=== PATIENT | male | born 1970 | race Caucasian/White ===

== ENCOUNTER 2022-06-12 06:30 | Inpatient (IN) | payer MEDICARE, OTHER ==
[~2022-06-12] VITALS: Ht 190.5 cm; Wt 81.0 kg
[~2022-06-12 06:30] MED LIST: BACTRIM DS 8001 TAB PO; CELEXA10 MG PO; DOXYCYCLINE 10100 MG PO; FARXIGA5 PO; KLONOPIN 0.5MG0.5 MG PO; KOMBIGLYZE XR 11 TER PO; NORCO 325 MG-51 TAB PO; ONGLYZA2.5 MG PO; RISPERDAL 0.20.25 MG PO; SEPTRA DS 8001 TAB PO
[2022-06-12 07:14] LABS: BASO % 0.5 % (0.0-2.0); EOS # 0.1 K/mm3 (0.0-0.7); EOS % 0.8 % (0.0-4.0); GRAN # 3.8 K/mm3 (1.4-6.5); GRAN % 62.7 % (42.2-75.2); HEMATOCRIT 48.1 % (42.0-52.0); HEMOGLOBIN 16.4 g/dl (13.5-18.0); LYMPH # 1.8 K/mm3 (1.2-3.4); LYMPH % 30.3 % (20.0-51.0); MEAN CELL VOLUME 85 fl (80.0-100.0); MEAN CORPUSCULAR HEMOGLOBIN 29 pg (27-31); MEAN CORPUSCULAR HGB CONC 34 g/dl (33.0-37.0); MEAN PLATELET VOLUME 9.2 fl (7.4-10.4); MONO # 0.3 K/mm3 (0.1-0.6); MONO % 5.5 % (1.7-9.3); PLATELET COUNT 268 K/mm3 (130-400); RED BLOOD COUNT 5.69 M/mm3 (4.20-5.60); REDCELL DISTRIBUTION WIDTH-CV 12.8 % (11.5-14.5)
[2022-06-12 07:21] LABS: PROTHROMBIN TIME 11.5 SECONDS (9.7-12.8)
[2022-06-12 07:27] LABS: ALBUMIN 2.2 gm/dL (3.5-5.0); BILIRUBIN,TOTAL 0.3 mg/dL (0.2-1.2); C-REACTIVE PROTEIN 0.74 mg/dL (0.00-0.50); CALCIUM 9.3 mg/dL (8.4-10.2); CREATININE, serum 1.44 mg/dL (0.72-1.25); POTASSIUM 4.9 mmol/L (3.5-4.5); TOTAL PROTEIN 6.8 gm/dL (6.2-8.1)
[2022-06-12 09:24] VITALS: BP 163/84; PULSE 96; TEMP 98
[2022-06-12 12:12] VITALS: BP 152/78; PULSE 92; TEMP 97.8
[2022-06-12 15:35] VITALS: BP 171/83; PULSE 84; TEMP 98.4
[2022-06-12 19:35] VITALS: BP 157/93; PULSE 108; TEMP 98.6
--- NOTE | 2022-06-12 21:17 | NUR ---
ALERT AND OX4. DENIES SOA, CHEST PAIN OR DIZZY. LEFT SIDE WEAK IN LEG OTHERWISE NEURO INTACT. CT H/N ORDERED PT THERE NOW. IV FLUIDS AND PM MEDS. POC DISCUSSED. USING URINAL. CALL LIGHT WI REACH.
[2022-06-12 23:17] VITALS: BP 142/85; PULSE 98; TEMP 98.3
[2022-06-13 02:06] LABS: MUCOUS Present (NOT PRESENT); PH 5 (5-8); SQUAMOUS EPITHELIAL 0-2 /hpf (0-10); URINE APPEARANCE Clear (CLEAR/HAZY); URINE BACTERIA Rare /hpf (NONE SEEN); URINE BLOOD 1+ (NEGATIVE); URINE COLOR Yellow (YELLOW); URINE GLUCOSE 2+ (NEGATIVE); URINE KETONE Negative (NEGATIVE); URINE NITRATE Negative (NEGATIVE); URINE PROTEIN(semi-quant) 2+ (NEGATIVE); URINE UROBILINOGEN Negative (NEGATIVE); URINE WBC 0-2 /hpf (0-2)
[2022-06-13 03:08] LABS: COLLECTION METHOD CLEAN CATCH
[2022-06-13 04:25] VITALS: BP 172/95; PULSE 88; TEMP 97.6
--- NOTE | 2022-06-13 04:36 | NUR ---
RESTED THROUGH THE NIGHT WITHOUT INCIDENT. NEEDS ARE MET. CALL LIGHT WI REACH.
[2022-06-13 07:03] VITALS: BP 127/71; PULSE 81; TEMP 99
[2022-06-13 07:23] LABS: BASO % 0.5 % (0.0-2.0); EOS # 0.1 K/mm3 (0.0-0.7); EOS % 1.2 % (0.0-4.0); GRAN # 3.3 K/mm3 (1.4-6.5); GRAN % 57.5 % (42.2-75.2); HEMATOCRIT 47.1 % (42.0-52.0); HEMOGLOBIN 15.9 g/dl (13.5-18.0); MEAN CELL VOLUME 85 fl (80.0-100.0); MEAN CORPUSCULAR HEMOGLOBIN 29 pg (27-31); MEAN CORPUSCULAR HGB CONC 34 g/dl (33.0-37.0); MEAN PLATELET VOLUME 9.8 fl (7.4-10.4); MONO # 0.3 K/mm3 (0.1-0.6); MONO % 5.6 % (1.7-9.3); PLATELET COUNT 274 K/mm3 (130-400); RED BLOOD COUNT 5.52 M/mm3 (4.20-5.60); REDCELL DISTRIBUTION WIDTH-CV 12.8 % (11.5-14.5)
[2022-06-13 07:32] LABS: CALCIUM 8.6 mg/dL (8.4-10.2); CHOLESTEROL RISK RATIO 8.5; CREATININE, serum 1.21 mg/dL (0.72-1.25); POTASSIUM 4.7 mmol/L (3.5-4.5)
[2022-06-13 07:55] LABS: TSH w REFLEX 2.102 uIU/mL (0.350-4.940)
[2022-06-13 08:00] VITALS: BP 127/71; PULSE 81
--- NOTE | 2022-06-13 10:19 | NUR ---
Initial visit; Patient thanked Waste Water Operator for looking in on him. Patient was receptive to Waste Water Operator offering God's blessings and for wishing him well.
[2022-06-13 12:00] VITALS: BP 151/91; PULSE 90; TEMP 98.4
--- NOTE | 2022-06-13 14:27 | NUR ---
leadite worker met with patient to complete intake and discuss discharge plan. Patient reports that he lives at home with his mother Nikki ([phone]), his brother and his dog. Patient states that he is independent with his ADL's and does not utilize any DME at home to assist with ambulation. Patient has been using a FWW during this stay and states that he has access to a walker at home. Patient does not utilize any home oxygen. Patient states that he used to see but hasn't seen him "in a few years". He gets his medications from [facility]. Patient does not have a DPOA-HC established but states he has a 25 yr old daughter that he doesn't have contact with her. He would like a form to appoint his mother as his agent. SW spoke with the patient about IPR. Patient verbalizes that he would like to go home. I feels as if he can do the same exercises at home that were doing here and doesn't feel like he needs it. IPR referral made to IPR director. PROMISE spoke with physician who states that his MRI was positive for a stroke and will talk with the patient about therapy. Discharge plan: Patient's wants to go home; IPR referral pending
--- NOTE | 2022-06-13 15:30 | NUR ---
PROMISE and ADA Trimble met with patient to explain the MRI findings. ADA educated the patient on his A1C levels, the need to monitor the patient post acute stroke and that we are waiting for neuro to consult with him. ADA attempts muliple efforts to educate the patient on his condition and is repeatedly interrupted by the patient. The patient expresses a strong desire to return home assuming the potential risks and possible that can occur. Patients nurse notified.
--- NOTE | 2022-06-13 15:57 | NUR ---
PATIENT INFORMED ADA CHNICHILLA THAT HE WANTS TO LEAVE AMA. THE PA INFORMED HIM OF ALL CONSEQUENCES OF LEAVING AMA, WELL THE PROS OF STAYING. I ALSO WENT OVER THE CONSEQUENCES OF SIGNING OUT AMA, INCLUDING BUT NOT LIMITED TO ANOTHER STROKE AND/OR . PATIENT STILL WANTED TO SIGN OUT AMA. HE IS COMPLETLEY ALERT AND ORIENTED, AND ABLE TO MAKE HIS OWN DECISIONS. PAPER SIGNED AND IN THE CHART. IV REMOVED, TELE MONITOR TAKEN OFF. CHARGE NURSE AND PUBLICATION MANAGER AWARE.
== END 2022-06-13 15:30 | disposition left against medical advice (07) | DRG 65 ==
LOC: COL.ER 06:30 → MEDICAL 08:23
PROVIDERS: Family Medicine; ADMIT Student in an Organized Health Care Education/Training Program
PROC: 4A03X5D Measurement of Arterial Flow, Intracranial, External Approach (ICD-10-PCS; principal; 2022-06-13)
DX: I63.9 Cerebral infarction, unspecified (principal); N17.9 Acute kidney failure, unspecified; I69.354 Hemiplegia and hemiparesis following cerebral infarction affecting left non-dominant side; Z53.29 Procedure and treatment not carried out because of patient's decision for other reasons; E11.9 Type 2 diabetes mellitus without complications; E87.5 Hyperkalemia; I10 Essential (primary) hypertension; J32.2 Chronic ethmoidal sinusitis; J32.1 Chronic frontal sinusitis; F41.9 Anxiety disorder, unspecified; R29.700 NIHSS score 0; F31.9 Bipolar disorder, unspecified; J32.0 Chronic maxillary sinusitis; J32.3 Chronic sphenoidal sinusitis; H54.62 Unqualified visual loss, left eye, normal vision right eye; F17.210 Nicotine dependence, cigarettes, uncomplicated; Z90.49 Acquired absence of other specified parts of digestive tract; Z89.422 Acquired absence of other left toe(s)
CPT/HCPCS: G0378; J1650; J1815; J7030; Q9967

== ENCOUNTER 2024-03-18 17:37 | Inpatient (IN) | payer MEDICARE ==
[~2024-03-18] VITALS: Ht 190.5 cm; Wt 74.4 kg
[~2024-03-18 17:37] MED LIST changes: +CORDARONE200 MG/TAB PO; +COUMADIN4 MG PO; +TURMERIC500 MG PO
[2024-03-18 18:42] LABS: BASO % 0.4 % (0.0-2.0); EOS # 0.2 K/mm3 (0.0-0.7); EOS % 1.9 % (0.0-4.0); GRAN # 7.6 K/mm3 (1.4-6.5); GRAN % 78.7 % (42.2-75.2); LYMPH # 1.2 K/mm3 (1.2-3.4); LYMPH % 12.6 % (20.0-51.0); MEAN CELL VOLUME 88 fl (80.0-100.0); MEAN CORPUSCULAR HGB CONC 33 g/dl (33.0-37.0); MEAN PLATELET VOLUME 9.8 fl (7.4-10.4); MONO # 0.6 K/mm3 (0.1-0.6); MONO % 6.1 % (1.7-9.3); PLATELET COUNT 282 K/mm3 (130-400); RED BLOOD COUNT 2.31 M/mm3 (4.20-5.60); REDCELL DISTRIBUTION WIDTH-CV 15.5 % (11.5-14.5)
[2024-03-18] MEDS ORDERED: NS 500 ML IV ONE (18:45)
[2024-03-18 18:46] LABS: HEMATOCRIT 20.3 % (42.0-52.0); HEMOGLOBIN 6.6 g/dl (13.5-18.0); MEAN CORPUSCULAR HEMOGLOBIN 29 pg (27-31)
[2024-03-18 18:48] LABS: ACETONE,SERUM NEGATIVE; ERYTHROCYTE SEDIMENTATION RATE 36 mm/hr (0-30)
[2024-03-18 19:03] LABS: ALANINE AMINOTRANSFERASE 21 U/L (0-55); ALKALINE PHOSPHATASE 96 U/L (40-150); ANION GAP 15 mmol/L (7-16); AST,SGOT 26 U/L (5-34); BILIRUBIN,TOTAL 0.3 mg/dL (0.2-1.2); BLOOD UREA NITROGEN 54 mg/dL (8-26); C-REACTIVE PROTEIN 18.59 mg/dL (0.00-0.50); CALCIUM 8.3 mg/dL (8.4-10.2); CHLORIDE 95 mEq/L (98-107); CREATININE, serum 3.09 mg/dL (0.72-1.25); GLUCOSE 215 mg/dL (70-99); POTASSIUM 3.5 mEq/L (3.5-4.5); SODIUM 136 mEq/L (136-145); TOTAL PROTEIN 6.9 g/dl (6.2-8.1)
[2024-03-18] MEDS ORDERED: COUMADIN 3MG3 MG/TAB PO (20:28)
[2024-03-18] MEDS ORDERED: LASIX 80MG TABL80 MG PO (20:29)
[2024-03-18] MEDS ORDERED: CORDARONE200 MG/TAB PO (20:29)
[2024-03-18] MEDS ORDERED: LASIX 40MG TABL40 MG PO (20:30)
[2024-03-18] MEDS ORDERED: FERROUSAL325 MG PO (20:30)
[2024-03-18] MEDS ORDERED: Insulin Lispro (HumaLOG) SQ SCH (21:00)
[2024-03-18] MEDS ORDERED: Acetaminophen 325 MG TAB PO PRN (21:00)
[2024-03-18] MEDS ORDERED: Dextrose (Glucose) 15 GM (4 x 3.75 GM) Chewable TABLET PACK PO PRN (21:15)
[2024-03-18] MEDS ORDERED: Dextrose 50% Water 25 GM/50 ML SYRINGE IV PRN (21:15)
[2024-03-18] MEDS ORDERED: Glucagon 1 MG VIAL IM PRN (21:15)
[2024-03-18 21:17] LABS: INR 5.6 (0.8-3.0); PROTHROMBIN TIME 58.4 SECONDS (9.7-12.8)
--- NOTE | 2024-03-18 21:20 | NUR ---
Report received from ELEAZAR Wallace in ED.
[2024-03-18 21:44] VITALS: BP 130/54; PULSE 72; TEMP 97.4
[2024-03-18 22:00] VITALS: BP 133/61; PULSE 70; TEMP 98
--- NOTE | 2024-03-18 22:00 | NUR ---
Blood transfusion started at this time per dr order.
[2024-03-18 22:15] VITALS: BP 130/62; PULSE 73; TEMP 97.5
[2024-03-18 22:30] VITALS: BP 124/66; PULSE 74; TEMP 97.8
[2024-03-18 23:00] VITALS: BP 127/58; PULSE 75; TEMP 98
--- NOTE | 2024-03-18 23:23 | NUR ---
Vancomycin Initial Dosing Pharmacy Note Ordering provider: Jose Jenkins MD Indication/duration: DM ulcers x 7 days Relevant comorbidities: HTN, DM2, ESRD on dialysis LABS: WBC = 9.7, SCr = 3.09 Recommendation: Will dose based on levels due to dialysis. Loading dose: 1.5 grams Maintenance dose: based on levels. Trough goal: 10-15 ug/mL
[2024-03-19] VITALS (15 sets, daily range): BP systolic 116–145; BP diastolic 64–80; PULSE 67–89; TEMP 98–98.9
[2024-03-19] MEDS ORDERED: Vancomycin 1.5 GM,Special Dose/Pharmacy Prepared 1.5 GM in NS 250 ML IV ONE
--- NOTE | 2024-03-19 00:40 | NUR ---
Blood transfusion complete at this time.
[2024-03-19 01:52] LABS: HEMATOCRIT 21.5 % (42.0-52.0); HEMOGLOBIN 7.1 g/dl (13.5-18.0)
--- NOTE | 2024-03-19 03:24 | NUR ---
Consult called to ortho at this time. Will see patient this AM.
--- NOTE | 2024-03-19 05:40 | NUR ---
Patient had an uneventful night. Vs remained stable. Received 1 unit of blood. Stool occult positive. Still need a UA. TDC to right chest-dressing CDI. Dressings applied to bilat heel ulcers. INT to right FA and left FA flush without difficulty. Denies current needs. Call light in reach. Will monitor.
--- NOTE | 2024-03-19 06:08 | NUR ---
Dr Jefferson notified of consult. Will see patient this afternoon.
--- NOTE | 2024-03-19 06:38 | NUR ---
Dr Jefferson at bedside to see patient for Urology consult.
[2024-03-19 06:56] LABS: BASO % 0.3 % (0.0-2.0); EOS # 0.2 K/mm3 (0.0-0.7); EOS % 1.5 % (0.0-4.0); GRAN % 83.8 % (42.2-75.2); LYMPH # 0.8 K/mm3 (1.2-3.4); LYMPH % 7.8 % (20.0-51.0); MEAN CELL VOLUME 85 fl (80.0-100.0); MEAN CORPUSCULAR HGB CONC 33 g/dl (33.0-37.0); MEAN PLATELET VOLUME 9.6 fl (7.4-10.4); MONO # 0.7 K/mm3 (0.1-0.6); MONO % 6.2 % (1.7-9.3); PLATELET COUNT 311 K/mm3 (130-400); REDCELL DISTRIBUTION WIDTH-CV 15.1 % (11.5-14.5)
[2024-03-19 07:00] LABS: HEMATOCRIT 24.6 % (42.0-52.0); HEMOGLOBIN 8.1 g/dl (13.5-18.0); MEAN CORPUSCULAR HEMOGLOBIN 28 pg (27-31)
[2024-03-19 07:20] LABS: CALCIUM 8.7 mg/dL (8.4-10.2); CREATININE, serum 3.64 mg/dL (0.72-1.25); POTASSIUM 4.2 mEq/L (3.5-4.5)
[2024-03-19] MEDS ORDERED: Ferrous Sulfate 325 MG TAB PO SCH (09:00)
[2024-03-19] MEDS ORDERED: Amiodarone 200 MG TAB PO SCH ×2 (09:00)
[2024-03-19] MEDS ORDERED: *Vancomycin Dosing Protocol IV SCH (09:00)
[2024-03-19] MEDS ORDERED: Furosemide 40 MG TAB PO SCH (09:00)
[2024-03-19] MEDS ORDERED: Phytonadione (Vitamin K) 5 MG/5 ML Oral Susp PO ONE (10:15)
[2024-03-19 11:30] LABS: INR 5.2 (0.8-3.0); PROTHROMBIN TIME 54.2 SECONDS (9.7-12.8)
--- NOTE | 2024-03-19 12:39 | NUR ---
D: Initial visit: Fire Control Technician G stopped by room on rounds. A: Pt was resting and content. Pt has no needs right now, but appreciated the visit. P: Fire Control Technician G informed pt that if he needed anything from the trust vault clerk area to let his nurse know. Fire Control Technician G will follow up as needed.
--- NOTE | 2024-03-19 13:43 | NUR ---
Patient alert and oriented x4. Denies increase in pain, states he has baseline pain to finger and penis. Fourth finger on right hand appears necrotic, no drainage noted. Tip of penis has tissue noted, draining minimal amount of clear/white drainage at bottom of tip. Multiple ulcers noted to bilateral feet, one open ulcer to right lateral foot. Remaining ulcers on feet appear dry and closed at this time. Wound care cleansed all dry wounds with betadine and dressed feet with xeroform, kerlix, and TANIA wrap. Finger and penis wounds cleansed as well and left open to air. Dialysis catheter to right chest CDI. Patient states he does not have much feeling in his feet. Tolerating food and fluids well. Call light within reach, all needs met at this time.
--- NOTE | 2024-03-19 15:53 | NUR ---
Coal Screener met with patient to discuss discharge planning. Patient lives at home with his mother, Nikki (ph#[phone]) [address] Dr. Thakkar for primary care. Patient gets his medications from [facility] and advised his mom usually picks them up for him. Patient gets dialysis three times at week at [facility]. Patient has a wheelchair at home and stated he cannot walk at all. When SW asked about ADLS, patient stated it's "taken care of". Patient stated he has [facility] and [place]. Patient stated he is also in the process of getting Medicaid established. Patient reported his mom is his DPOA-HC and again that it's all "taken care of". Patient stated he even has his paid for. Patient advised he was just here to get his finger "lopped off" and it's turned into something more. Patient plans to return home at time of discharge. Discharge Plan: Home with continued HH
[2024-03-19] MEDS ORDERED: Heparin 1,000 UNITS/ML 10 ML Multi-Dose VIAL ICA SCH (18:15)
[2024-03-19] MEDS ORDERED: Heparin 1,000 UNITS/ML 10 ML Multi-Dose VIAL IV SCH (18:15)
--- NOTE | 2024-03-19 20:00 | NUR ---
ATTEMPTED TO MOVE GILBERTO FROM BEDSIDE COMMODE WITH 3-PERSON ASSIST-UNSAFE. ATTEMPTED TO USE [id number]-PATIENT DID NOT TOLERATE WELL, C/O OF BACK PAIN. UTILIZED FOUR PERSON ASSISST AND WAS ABLE TO TRANSFER GILBERTO TO BED.
--- NOTE | 2024-03-19 20:30 | NUR ---
UPON SHIFT ASSESSMENT, GILBERTO WAS ON BEDSIDE COMMODE AND HAD A HARD TARRY STOOL-OCCULT POSITIVE-HOLDING ANTICOAGS. HE IS AXO X4 AND DENIES SOA OR CHEST PAIN AT THIS TIME. BLLE SHOW SIGNIFICANT NECROTIC TISSUE AND PENIS HEAD WELL. PATIENT DENIES PAIN IN THESE REGIONS. HGB 8.1, VS ARE WNL AND TELE IS NS. TUNNELED HD CATH TO RT CHEST CDI. STATES NO NEEDS AT THIS TIME. CALL LIGHT WITHIN REACH.
--- NOTE | 2024-03-19 23:00 | NUR ---
DRESSING CHANGED- BLLE-ZERFORM, GAUZE, KERLIX AND TANIA BANDAGE. BETADINE TO NON DRAINING WOUNDS ON BILATERAL TOES, LT INTERIOR ASPECT OF FOOT AND PENIS. PATIENT TOLERATED WELL. MINIMAL PURLENT MALODOROUS DRAINAGE NOTED. BED ALARM CALL LIGHT WITHIN REACH.
[2024-03-19 23:15] LABS: COLLECTION METHOD CATHETER
[2024-03-19 23:23] LABS: PH 5.5 (5.0-8.5); URINE APPEARANCE CLOUDY (CLEAR/HAZY); URINE BLOOD 2+ (NEGATIVE); URINE COLOR YELLOW (YELLOW); URINE GLUCOSE 1+ (NEGATIVE); URINE KETONE NEGATIVE (NEGATIVE); URINE NITRATE NEGATIVE (NEGATIVE); URINE PROTEIN(semi-quant) 4+ (NEGATIVE); URINE UROBILINOGEN 0.2 E.U/dL (0.2-1.0)
[2024-03-19 23:47] LABS: URINE WBC 20-50 /hpf (0-2)
[2024-03-19 23:48] LABS: SQUAMOUS EPITHELIAL 20-50 /hpf (0-10); URINE BACTERIA MODERATE /hpf (NONE SEEN)
[2024-03-20] VITALS (14 sets, daily range): BP systolic 116–141; BP diastolic 60–75; PULSE 72–82; TEMP 97.3–98.9
--- NOTE | 2024-03-20 05:16 | NUR ---
PATIENT REFUSES SCDS D/T BLLE WOUNDS
[2024-03-20 06:07] LABS: INR 3.6 (0.8-3.0); PROTHROMBIN TIME 38.2 SECONDS (9.7-12.8)
[2024-03-20 06:10] LABS: BASO % 0.4 % (0.0-2.0); EOS # 0.2 K/mm3 (0.0-0.7); EOS % 2.4 % (0.0-4.0); GRAN # 7.3 K/mm3 (1.4-6.5); GRAN % 77.8 % (42.2-75.2); LYMPH # 1.2 K/mm3 (1.2-3.4); MEAN CELL VOLUME 84 fl (80.0-100.0); MEAN CORPUSCULAR HGB CONC 33 g/dl (33.0-37.0); MEAN PLATELET VOLUME 9.8 fl (7.4-10.4); MONO # 0.6 K/mm3 (0.1-0.6); PLATELET COUNT 318 K/mm3 (130-400); REDCELL DISTRIBUTION WIDTH-CV 15.2 % (11.5-14.5)
[2024-03-20 06:19] LABS: CALCIUM 8.3 mg/dL (8.4-10.2); CREATININE, serum 4.8 mg/dL (0.72-1.25); POTASSIUM 4.7 mEq/L (3.5-4.5)
[2024-03-20 06:21] LABS: MEAN CORPUSCULAR HEMOGLOBIN 28 pg (27-31)
[2024-03-20] MEDS ORDERED: Sevelamer Carbonate 800 MG TAB PO SCH (08:00)
--- NOTE | 2024-03-20 08:57 | NUR ---
Patient resting in bed, complaining he has not been able to sleep. Alert and oriented x 4, VSS. Has been NPO from mindnight. Telemetry in place, Getting fluids per orders. Assessment complted, consent signed. No further needs at this time. To have dialysis after INGRID. Call light within reach.
[2024-03-20] MEDS ORDERED: NS 1,000 ML IV SCH ×2 (09:00→15:15)
[2024-03-20] MEDS ORDERED: 1/2 NS 1,000 ML IV SCH (11:00)
[2024-03-20] MEDS ORDERED: SODIUM THIOSULFATE IV SCH (12:00)
--- NOTE | 2024-03-20 12:43 | NUR ---
Mr. Godinez cited concerns about why proceed with the INGRID after apparently receiving news from a physician that "nothing could be done" "an amputation won't help". Dr. Meneses paged, reports he was asked to do the INGRID by the hospitalist, unsure of overall benefit to Mr. Godinez. Patient elects to revoke consent. Patient brought back to floor, Lisa BUSH given full report.
--- NOTE | 2024-03-20 13:00 | NUR ---
Patient refusing treatment, Konstantin and dialysis. Call Placed to Dr. Ballard. No answer. Pt states he wants to have a talk with all the doctors involved in his health, since he was told there is nothing else to do for him, and then, he just wants to go home and live peacefully. Reported to dialysis nurse.
[2024-03-20] MEDS ORDERED: NS 10 ML IV ONE (15:49)
--- NOTE | 2024-03-20 15:59 | NUR ---
Patient taken for partial finger amputation. Consent signed.
[2024-03-20] MEDS ORDERED: Ondansetron 4 MG/2 ML VIAL IV PRN (16:00)
[2024-03-20] MEDS ORDERED: Morphine 2 MG/1 ML VIAL [PACU/SDC ONLY] IV PRN (16:00)
--- NOTE | 2024-03-20 16:39 | NUR ---
Skiing Teacher contacted Jay at [facility] and faxed clinical updates.
[2024-03-20] MEDS ORDERED: Naloxone 0.4 MG/ML VIAL IV PRN (16:45)
--- NOTE | 2024-03-20 17:30 | NUR ---
Patient is back from surgery, Alert and orineted x 4, denies any pain. VSS. IS requested to RT. Pt hungry, ordered some dinner. Antibiotics started per orders. Post op VS continuing to be monitoring.
--- NOTE | 2024-03-20 18:42 | NUR ---
Pt is getting his dinner right now. VSS. Report will be given to venkatesh RN.
[2024-03-21] VITALS (10 sets, daily range): BP systolic 103–130; BP diastolic 54–73; PULSE 68–79; TEMP 97.4–98.1
[2024-03-21 06:33] LABS: BASO % 0.3 % (0.0-2.0); EOS # 0.2 K/mm3 (0.0-0.7); EOS % 1.7 % (0.0-4.0); GRAN # 6.7 K/mm3 (1.4-6.5); GRAN % 77.6 % (42.2-75.2); LYMPH # 1.2 K/mm3 (1.2-3.4); LYMPH % 14.3 % (20.0-51.0); MEAN CELL VOLUME 85 fl (80.0-100.0); MEAN CORPUSCULAR HGB CONC 33 g/dl (33.0-37.0); MEAN PLATELET VOLUME 9.8 fl (7.4-10.4); MONO # 0.5 K/mm3 (0.1-0.6); MONO % 5.8 % (1.7-9.3); PLATELET COUNT 363 K/mm3 (130-400); RED BLOOD COUNT 2.73 M/mm3 (4.20-5.60); REDCELL DISTRIBUTION WIDTH-CV 15.5 % (11.5-14.5)
[2024-03-21 06:35] LABS: HEMATOCRIT 23.2 % (42.0-52.0); HEMOGLOBIN 7.7 g/dl (13.5-18.0); MEAN CORPUSCULAR HEMOGLOBIN 28 pg (27-31)
[2024-03-21 06:38] LABS: CALCIUM 8.2 mg/dL (8.4-10.2); CREATININE, serum 5.48 mg/dL (0.72-1.25); POTASSIUM 4.8 mEq/L (3.5-4.5)
[2024-03-21 06:52] LABS: INR 3.3 (0.8-3.0); PROTHROMBIN TIME 35.5 SECONDS (9.7-12.8)
--- NOTE | 2024-03-21 11:24 | NUR ---
Patient alert and oriented x4. Shift assessment complete this morning. Denies increase in pain, sitting up on edge of bed and eating fruit. Tolerating food and fluids well. Large appetite noted. Dressing to bilateral feet changed per orders. Right hand finger amputation dressing CDI. Penis area cleansed with iodine per orders, left open to air. Dialysis catheter CDI. Call light within reach, all needs met at this time.
--- NOTE | 2024-03-21 22:53 | NUR ---
PT ALERT AND ORIENTED. DANGLING AT BEDSIDE C/O INABILITY TO SLEEP BECAUSE WE KEEP BOTHERING HIM WITH MEDS AND VITALS. ASSESSED. AGRRED NOT TO ENTER THE ROOM UNTIL 4 AM. HE IS VERY AGGITATED AND AGGRESSIVE WITH HIS TONE AND DEMEANOR. PT STATES "WHERE HE COMES FROM YOU HAVE TO BE READY FOR ANYTHING, NEVER KNOW WHOS SHOWING UP AND YOU HAVE TO HAVE A PISTOL READY". SIGN PLACED OUTSIDE THE DOOR TO HAVE VISIT NURSES STATION. CALL LIGHT WITHIN REACH.
[2024-03-22] VITALS (7 sets, daily range): BP systolic 121–131; BP diastolic 68–77; PULSE 72–78; TEMP 98.4–98.6
[2024-03-22] MEDS ORDERED: RENVELA800 MG PO (10:15)
[2024-03-22] MEDS ORDERED: SENSIPAR30 MG PO (10:15)
[2024-03-22] MEDS ORDERED: DOXYCYCLINE 10100 MG PO (10:17)
--- NOTE | 2024-03-22 13:53 | NUR ---
Shift assessment complete this morning. Patient alert and oriented x4. Denies increase in pain from baseline. Declined need for pain medications. Dressings changed per orders to bilateral feet, dry/intact wounds cleaned with iodine per orders. Finger amputation dressing CDI. Patient voiced concerns over discharging home, Dr. Ballard updated. Discharge orders obtained, instructions discussed with patient including follow-up appointments, new/changed medications, and education packets. Discussed wound care and extra supplies sent with patient. Offices of Ortho, wound care, and PCP faxed for follow-up appointment. Cardiology follow-up already scheduled. Patient states he has dialysis follow-up sorted out. IV discontinued to left forearm with no complications. Telemetry off. Patient escorted to family car via wheelchair. Patient's home health aware of discharge per Gertrude from .
--- NOTE | 2024-03-23 10:56 | NUR ---
Smocking Machine Operator contacted Jay at [facility] and faxed discharge orders and summary.
== END 2024-03-22 13:20 | disposition home or self-care (01) | DRG 255 ==
LOC: COL.ER 17:37 → MEDICAL 21:00
PROVIDERS: Emergency Medicine; Internal Medicine; Nurse Practitioner Family; Orthopaedic Surgery; ADMIT Internal Medicine
PROC: 30233N1 Transfusion of Nonautologous Red Blood Cells into Peripheral Vein, Percutaneous Approach (ICD-10-PCS; 2024-03-18)
PROC: 0X6S0Z1 Detachment at Right Ring Finger, High, Open Approach (ICD-10-PCS; principal; 2024-03-20 16:00)
DX: E11.52 Type 2 diabetes mellitus with diabetic peripheral angiopathy with gangrene (principal); N18.6 End stage renal disease; I13.2 Hypertensive heart and chronic kidney disease with heart failure and with stage 5 chronic kidney disease, or end stage renal disease; I42.0 Dilated cardiomyopathy; I50.42 Chronic combined systolic (congestive) and diastolic (congestive) heart failure; L97.429 Non-pressure chronic ulcer of left heel and midfoot with unspecified severity; L97.419 Non-pressure chronic ulcer of right heel and midfoot with unspecified severity; I96 Gangrene, not elsewhere classified; E46 Unspecified protein-calorie malnutrition; E11.622 Type 2 diabetes mellitus with other skin ulcer; E78.5 Hyperlipidemia, unspecified; L98.499 Non-pressure chronic ulcer of skin of other sites with unspecified severity; E11.621 Type 2 diabetes mellitus with foot ulcer; L97.529 Non-pressure chronic ulcer of other part of left foot with unspecified severity; L97.519 Non-pressure chronic ulcer of other part of right foot with unspecified severity; E88.09 Other disorders of plasma-protein metabolism, not elsewhere classified; F32.A Depression, unspecified; F41.9 Anxiety disorder, unspecified; F17.210 Nicotine dependence, cigarettes, uncomplicated; I08.3 Combined rheumatic disorders of mitral, aortic and tricuspid valves; R79.1 Abnormal coagulation profile; T45.515A Adverse effect of anticoagulants, initial encounter; E11.40 Type 2 diabetes mellitus with diabetic neuropathy, unspecified; N48.89 Other specified disorders of penis; I48.0 Paroxysmal atrial fibrillation; E11.22 Type 2 diabetes mellitus with diabetic chronic kidney disease; D64.9 Anemia, unspecified; N48.5 Ulcer of penis; Z89.422 Acquired absence of other left toe(s); Z86.73 Personal history of transient ischemic attack (TIA), and cerebral infarction without residual deficits; Z90.49 Acquired absence of other specified parts of digestive tract; Z79.01 Long term (current) use of anticoagulants; Z99.2 Dependence on renal dialysis; Z79.899 Other long term (current) drug therapy; Z68.20 Body mass index [BMI] 20.0-20.9, adult
CPT/HCPCS: A9284; J0690; J1815; J2543; J3370; J7030; J7040; J7050; P9016; Q3014

== ENCOUNTER 2024-05-25 13:09 | Inpatient (IN) | payer MEDICARE, MEDICAID ==
[2024-05-25] VITALS (10 sets, daily range): BP systolic 123–159; BP diastolic 69–92; PULSE 69–83; TEMP 97.6
[~2024-05-25] VITALS: Ht 190.5 cm; Wt 92.4 kg
[~2024-05-25 13:09] MED LIST changes: +COUMADIN 3MG3 MG/TAB PO; +FERROUSAL325 MG PO; +LASIX 40MG TABL40 MG PO; +LASIX 80MG TABL80 MG PO; +RENVELA800 MG PO; +SENSIPAR30 MG PO
[2024-05-25 15:13] LABS: BASO % 0.6 % (0.0-2.0); EOS # 0.1 K/mm3 (0.0-0.7); EOS % 1.4 % (0.0-4.0); GRAN # 5.6 K/mm3 (1.4-6.5); GRAN % 77.1 % (42.2-75.2); LYMPH # 1.2 K/mm3 (1.2-3.4); LYMPH % 16.6 % (20.0-51.0); MEAN CELL VOLUME 87 fl (80.0-100.0); MEAN CORPUSCULAR HGB CONC 32 g/dl (33.0-37.0); MEAN PLATELET VOLUME 9.3 fl (7.4-10.4); MONO # 0.3 K/mm3 (0.1-0.6); PLATELET COUNT 332 K/mm3 (130-400); RED BLOOD COUNT 2.93 M/mm3 (4.20-5.60); REDCELL DISTRIBUTION WIDTH-CV 16.8 % (11.5-14.5)
[2024-05-25 15:15] LABS: HEMATOCRIT 25.4 % (42.0-52.0); HEMOGLOBIN 8.1 g/dl (13.5-18.0); MEAN CORPUSCULAR HEMOGLOBIN 28 pg (27-31)
[2024-05-25 15:18] LABS: INR 1.5 (0.8-3.0)
[2024-05-25 15:33] LABS: ALBUMIN 2.7 g/dL (3.5-5.0); BILIRUBIN,TOTAL 0.4 mg/dL (0.2-1.2); CALCIUM 8.4 mg/dL (8.4-10.2); CREATININE, serum 3.65 mg/dL (0.72-1.25); POTASSIUM 3.6 mEq/L (3.5-4.5); TOTAL PROTEIN 8.4 g/dl (6.2-8.1)
[2024-05-25] MEDS ORDERED: oxyCODONE 5 MG TAB PO PRN (17:30)
[2024-05-25] MEDS ORDERED: Heparin 5,000 UNITS/ML 1 ML VIAL IV PRN (17:30)
[2024-05-25] MEDS ORDERED: Heparin/D5W 250 ML IV SCH (17:30)
[2024-05-25] MEDS ORDERED: Acetaminophen 500 MG TAB PO PRN (17:30)
[2024-05-25] MEDS ORDERED: Heparin 5,000 UNITS/ML 1 ML VIAL IV ONE (17:30)
[2024-05-25] MEDS ORDERED: Morphine 4 MG/ML VIAL IV PRN (17:30)
[2024-05-25] MEDS ORDERED: Ondansetron 4 MG/2 ML VIAL IV PRN ×2 (17:30→18:15)
[2024-05-25] MEDS ORDERED: Doxycycline Monohydrate 100 MG CAP PO SCH (17:32)
[2024-05-25] MEDS ORDERED: Lidocaine PF 2% (20 MG/ML) 5 ML VIAL ONE (17:43)
[2024-05-25] MEDS ORDERED: fentaNYL 50 MCG/ML 2 ML VIAL ONE (17:44)
[2024-05-25] MEDS ORDERED: Ondansetron 4 MG/2 ML VIAL ONE (17:54)
[2024-05-25] MEDS ORDERED: dexAMETHasone 10 MG/ML VIAL ONE (17:54)
[2024-05-25 17:57] LABS: PARTIAL THROMBOPLASTIN TIME 37.2 SECONDS (26.0-37.0)
[2024-05-25] MEDS ORDERED: Glucagon 1 MG VIAL IM PRN (18:00)
[2024-05-25] MEDS ORDERED: Dextrose 50% Water 25 GM/50 ML SYRINGE IV PRN (18:00)
[2024-05-25] MEDS ORDERED: Dextrose (Glucose) 15 GM (4 x 3.75 GM) Chewable TABLET PACK PO PRN (18:00)
[2024-05-25] MEDS ORDERED: Glycopyrrolate 0.2 MG/ML 1 ML VIAL ONE (18:04)
[2024-05-25] MEDS ORDERED: Meperidine 50 MG/ML 1 ML VIAL IV PRN (18:15)
[2024-05-25] MEDS ORDERED: fentaNYL 50 MCG/ML 1 ML SYRINGE/VIAL [PACU/SDC ONLY] IV PRN (18:15)
[2024-05-25] MEDS ORDERED: LR 500 ML IV ONE (18:20)
--- NOTE | 2024-05-25 19:15 | NUR ---
PT ARRIVED TO ROOM 341 FROM PACU. A&O X4. ON POSTOP VITALS, WNL. BANDAID TO LEFT WRIST CDI & PULSE +1. PT DENYING PAIN OR N/V. TIP OF MIDDLE & POINTER FINGER ON LEFT HAND ARE BLACK/COLD. POSTOP FLUIDS INFUSING TO RT AC VIA GRAVITY. PT ORIENTED TO ROOM. DENYING FURTHER NEEDS. CALL LIGHT IN REACH
--- NOTE | 2024-05-25 20:15 | NUR ---
PT STARTED ON HEP GTT PER ORDERS. BOLUS GIVEN & STARTED INFUSING AT 16.5MLS/HR TO RT AC, SEE MAR. NEXT HEP XA WILL BE AT 0220. COMPLETED ADMISSION W/ PT AT THIS TIME. WHEN ATTEMPTING MED REC PT STATED "I DONT KNOW WHAT OR HOW MUCH MEDS I TAKE, I JUST TAKE WHAT THEY TELL ME". PT ALSO HAS DIALYSIS CATH TO RT CHEST, DRSG CDI. PT REPORTS HE HAS BLE FOOT ULCERS WHICH HE SEES WOUND CARE FOR, DRSG TO BLE CDI. GAVE PRN TYLENOL PER MAR PT STATING LEFT HAND PAIN 01/04. TOLERATING PO INTAKE W/O N/V. CALL LIGHT IN REACH
[2024-05-25] MEDS ORDERED: Insulin Lispro (HumaLOG) SQ SCH (21:00)
[2024-05-26] VITALS (11 sets, daily range): BP systolic 124–148; BP diastolic 72–83; PULSE 73–79; TEMP 97.8–99
--- NOTE | 2024-05-26 03:03 | NUR ---
0220 HEP XA WAS 0.24. PER PROTOCOL INCREASED HEP GTT TO 18ML/HR. NEXT HEP XA WILL BE AT 0900. PT REPORTS HIS LEFT HAND IS FEELING MUCH BETTER. DENIES PAIN. PULSE +1. BANDAID WITH A LITTLE BLOODY DRAINAGE. CALL LIGHT IN REACH
[2024-05-26 06:40] LABS: BASO % 0.2 % (0.0-2.0); GRAN % 86.5 % (42.2-75.2); LYMPH # 0.9 K/mm3 (1.2-3.4); MEAN CELL VOLUME 86 fl (80.0-100.0); MEAN CORPUSCULAR HGB CONC 32 g/dl (33.0-37.0); MEAN PLATELET VOLUME 9.6 fl (7.4-10.4); MONO # 0.3 K/mm3 (0.1-0.6); MONO % 3.1 % (1.7-9.3); PLATELET COUNT 353 K/mm3 (130-400); RED BLOOD COUNT 3.21 M/mm3 (4.20-5.60); REDCELL DISTRIBUTION WIDTH-CV 16.5 % (11.5-14.5)
[2024-05-26 06:47] LABS: HEMATOCRIT 27.6 % (42.0-52.0); HEMOGLOBIN 8.9 g/dl (13.5-18.0); MEAN CORPUSCULAR HEMOGLOBIN 28 pg (27-31)
[2024-05-26 06:55] LABS: CALCIUM 8.5 mg/dL (8.4-10.2); CREATININE, serum 4.52 mg/dL (0.72-1.25); POTASSIUM 4.9 mEq/L (3.5-4.5)
--- NOTE | 2024-05-26 07:02 | NUR ---
Pt sitting up in bed. Ordering breakfast. No needs at this time. Call light in reach, bed alarm on.
--- NOTE | 2024-05-26 07:02 | NUR ---
Pt called to report bleeding from incision site. Upon assessment, bandaid was saturated in blood. Pt unsure how long site was bleeding, small amount of blood on Pt's sheets. Cleaned incision site and wrist. Sutures still in place. Small site where there is a slow bleed. Applied pressure, gauze, and taped new dressing. Will continue to monitor.
--- NOTE | 2024-05-26 07:30 | NUR ---
Pt reported incision site continuing to bleed. Removed bloody gauze. Applied pressure for 5 minutes. Applied pressure dressing. Xeroform, gauze, and coban wrap. Educated Pt to notify this RN if dressing is too tight. Pt said it is good for now. Changed Pt sheets. No further needs at this time. Call light in reach and bed alarm on. Pt sitting up for breakfast.
--- NOTE | 2024-05-26 08:50 | NUR ---
Pt laying in bed. Able to lift/move legs minimal amounts. A&Ox4. VSS. S1S2. Clear lungs on RA. ABD flat, soft, non-tender with audible bowel sounds. Palpable pulses in all extremities, L wrist is weak. Pressure dressing on incision on L wrist. IV in R AC with Heparin running at 18 cc/hr. Dialysis Catheter on R chest is CDI with gauze dressing. Pt has bilateral heel ulcers with gauze wrap. Pt sees as outpatient for these. WCC. Pt's Left middle and pointer fingers are black tinged. Pointer finger has cap refill, unable to tell on middle finger tip. Pt reports scabs on tip of penis from a Pagan Catheter placement a little while ago. L hand is mildly swollen and red. No further needs. Call light in reach and bed alarm on.
[2024-05-26] MEDS ORDERED: Amiodarone 200 MG TAB PO SCH (09:00)
[2024-05-26] MEDS ORDERED: COUMADIN 3MG3 MG/TAB PO (11:10)
--- NOTE | 2024-05-26 11:11 | NUR ---
Gun Stocker and student, Ping met with patient to complete initial intake. Patient stated he lives with his mom, Nikki (ph#[phone]) in [place] and sees Dr. Thakkar for primary care. Patient gets medications from [facility] and advised Nikki usually picks them up for him. Patient uses a wheelchair at all times but is hopeful he can work up to walking again someday. Patient has a small bathroom that is not accessible so he stated he is sponge bathing. Patient has services from [facility] and [place]. Patient stated [facility] comes out [facility] after dialysis to do wound care. Patient reported [place] recently received a tavo to have a wheelchair ramp built on the side of patient's home. Patient is happy about this and stated this will increase his independence as his current ramp he cannot use without assistance. Patient goes to [facility] here in [facility]. Patient's mother, Nikki is DPOA-HC and there is a copy in patient's chart. Discharge Plan; Home with [facility] and [place]
--- NOTE | 2024-05-26 11:46 | NUR ---
D: School Photograph Editor stopped by room on rounds. A: Pt was resting and content. Pt has a strong lonnie and has no needs right now. P: School Photograph Editor informed pt that if he needed anything to let his nurse know. School Photograph Editor will follow up as needed.
--- NOTE | 2024-05-26 12:52 | NUR ---
Educated Pt on K-PAD. Placed K-Pad under L arm/hand to help promote blood flow.
[2024-05-26] MEDS ORDERED: Clopidogrel 75 MG TAB PO SCH (14:15)
--- NOTE | 2024-05-26 14:28 | NUR ---
Social work student faxed updates to [facility] and followed up with Jay at [facility]. Discharge plan: Home with [facility]
--- NOTE | 2024-05-26 16:10 | NUR ---
Report given to ELEAZAR Burrell.
--- NOTE | 2024-05-26 16:26 | NUR ---
Pt transferred to Room 308. Introduced Pt to [facility]. No further needs.
--- NOTE | 2024-05-26 16:30 | NUR ---
PATIENT ARRIVED FROM SURGICAL. PATIENT ALERT AND ORIENTED X4.PATIENT HEPARIN DRIP RATE PER EMAR. PATIENT ON ROOM AIR/ HAD DYALISIS CATHETER TO RIGHT UPPER CHEST, RIGHT AC IV. PATIENT DENIES PAIN AT THIS TIME. SORENESS FROM SURGERY ON LEFT HAND. PATIENT HAS LEFT LEFT WRIST BANDAGE. NECROTIC MIDDLE FINGER NO CAP REFILL, BILATERAL HEEL ULCERS. WRAPPED WITH GAUZE DRESSING. SHIFT ASSESSMENT COMPLETED. CALL LIGHT WITHIN REACH. BED AT LOWEST POSITION.
[2024-05-26] MEDS ORDERED: Heparin 1,000 UNITS/ML 10 ML Multi-Dose VIAL IV SCH (18:00)
[2024-05-26] MEDS ORDERED: Heparin 1,000 UNITS/ML 10 ML Multi-Dose VIAL ICA SCH (18:00)
--- NOTE | 2024-05-26 20:30 | NUR ---
SHIFT ASSESSMENT COMPLETE. PATIENT AWAKE IN BED AND AXO X4. LT WRIST FISTULA TIE-OFF CDI-REWRAPPED WITH TANIA. DISTAL PULSES SLOW. LT RING FINGER ERYTHEMIA WITH FINGER TIP NECROSIS, MIDDLE FINGER NECROTIC. BILATERAL TOE NECROSIS AND HEALING NECROSIS ON PENIS WITH SCABBING. VS ARE WNL AND TELE IS NS. PATIENT STATES NO NEEDS AT THIS TIME. RT UPPER CHEST HD CATH CDI. CALL LIGHT WITHIN REACH.
[2024-05-26] MEDS ORDERED: Atorvastatin 40 MG TAB PO SCH (21:00)
[2024-05-27] VITALS (9 sets, daily range): BP systolic 114–142; BP diastolic 70–85; PULSE 72–75; TEMP 97.8–98.1
[2024-05-27] MEDS ORDERED: Heparin/D5W 250 ML IV SCH (01:30)
--- NOTE | 2024-05-27 01:30 | NUR ---
HEP Xa RESULT-0.23. PER ORDER SET INFUSION RATE INCREASED 150 UNITS PER HOUR. NOW GTT RATE 2200 UNITS PER HOUR OR 22ML/HR. COSIGNATURE RECIEVED.
[2024-05-27 06:41] LABS: BASO % 0.3 % (0.0-2.0); EOS # 0.1 K/mm3 (0.0-0.7); EOS % 1.1 % (0.0-4.0); GRAN # 5.8 K/mm3 (1.4-6.5); GRAN % 63.1 % (42.2-75.2); LYMPH # 2.7 K/mm3 (1.2-3.4); LYMPH % 29.7 % (20.0-51.0); MEAN CELL VOLUME 85 fl (80.0-100.0); MEAN CORPUSCULAR HGB CONC 32 g/dl (33.0-37.0); MEAN PLATELET VOLUME 9.9 fl (7.4-10.4); MONO # 0.5 K/mm3 (0.1-0.6); MONO % 5.4 % (1.7-9.3); PLATELET COUNT 342 K/mm3 (130-400); RED BLOOD COUNT 2.86 M/mm3 (4.20-5.60); REDCELL DISTRIBUTION WIDTH-CV 16.4 % (11.5-14.5)
[2024-05-27 06:52] LABS: HEMATOCRIT 24.3 % (42.0-52.0); HEMOGLOBIN 7.8 g/dl (13.5-18.0); MEAN CORPUSCULAR HEMOGLOBIN 27 pg (27-31)
[2024-05-27 07:11] LABS: CALCIUM 8.8 mg/dL (8.4-10.2); CREATININE, serum 5.75 mg/dL (0.72-1.25); POTASSIUM 5.1 mEq/L (3.5-4.5)
--- NOTE | 2024-05-27 08:00 | NUR ---
Pt. sitting at bedside wrapped in blankets upon entry. C/o being cold and requested his door remains shut. Administered PO medications per JAN and performed shift assessment. Noted necrosis to L 2nd and 3rd digit. Pt. commented that movement has increased in this hand since admission. However, L hand is still not as strong as R hand. Dressing to L wrist CDI. Dressings on BL feet CDI. Did not remove dressings at this time as pt. has WCC today. Noted an ulcer between L 1st and 2nd toe. Unable to assess pt.'s gait. However, pt. is wc bound per bedside report. Pt. denies pain or further complaints at this time. Call light in reach.
[2024-05-27] MEDS ORDERED: Apixaban 2.5 MG TABLET PO SCH (10:00)
--- NOTE | 2024-05-27 14:53 | NUR ---
Manager Training faxed updates to [facility]riber[facility] ANA[facility]
[2024-05-27] MEDS ORDERED: ELIQUIS 2.5 PO (15:17)
[2024-05-27] MEDS ORDERED: PLAVIX 75MG TAB75 MG PO (15:18)
[2024-05-27] MEDS ORDERED: LIPITOR 40MG TA40 MG PO (15:19)
[2024-05-27] MEDS ORDERED: ASPIRIN 81M81 MG/TA2 PO (15:21)
--- NOTE | 2024-05-27 17:06 | NUR ---
3 hemodialysis treatment completed as ordered 3000 mls removed, patient tolerated well, dressing to right tunneled CVC changed per policy, ports heparinized and capped post treatment
--- NOTE | 2024-05-27 18:25 | NUR ---
Discharge instructions reviewed with patient- verbalizes understanding. INT to RFA d/c'd with cath tip intact. Pt requests his mother sign discharge paperwork since he is left handed and unable to sign due to necrocis of fingers.
--- NOTE | 2024-06-03 07:50 | NUR ---
On 06/02/24, social psychologist contacted Jackie at [facility] and confirmed that they received home health orders upon discharge, however, was unable to see patient prior to readmission.
== END 2024-05-27 18:25 | disposition home or self-care (01) | DRG 252 ==
LOC: COL.ER 13:09 → SURG 16:56 → COL.ER 17:34 → SURG 21:00 → MEDICAL 05-26 16:26
PROVIDERS: Physician Assistant; Surgery; ADMIT Internal Medicine
PROC: 03LC0ZZ Occlusion of Left Radial Artery, Open Approach (ICD-10-PCS; principal; 2024-05-25 17:30)
DX: I99.8 Other disorder of circulatory system (principal); N18.6 End stage renal disease; D63.1 Anemia in chronic kidney disease; Z99.2 Dependence on renal dialysis; I42.0 Dilated cardiomyopathy; I34.0 Nonrheumatic mitral (valve) insufficiency; I48.0 Paroxysmal atrial fibrillation; E11.9 Type 2 diabetes mellitus without complications; Z79.4 Long term (current) use of insulin; Z86.73 Personal history of transient ischemic attack (TIA), and cerebral infarction without residual deficits
CPT/HCPCS: J0208; J0665; J0690; J1100; J1644; J1815; J2405; J2704; J3010; J7120; Q3014

== ENCOUNTER 2024-06-01 06:25 | Inpatient (IN) | payer MEDICARE, MEDICAID ==
[2024-06-01] VITALS (12 sets, daily range): BP systolic 108–140; BP diastolic 68–85; PULSE 62–85; TEMP 97.5–97.6
[~2024-06-01] VITALS: Ht 190.5 cm; Wt 94.0 kg
[~2024-06-01 06:25] MED LIST changes: +ASPIRIN 81M81 MG/TA2 PO; +ELIQUIS 2.5 PO; +LIPITOR 40MG TA40 MG PO; +PLAVIX 75MG TAB75 MG PO
[2024-06-01] MEDS ORDERED: Morphine 4 MG/ML VIAL IV ONE (07:30)
[2024-06-01] MEDS ORDERED: Ondansetron 4 MG/2 ML VIAL IV PRN ×2 (07:30→11:30)
[2024-06-01 07:54] LABS: BASO # 0.1 K/mm3 (0.0-0.2); BASO % 0.5 % (0.0-2.0); EOS # 0.2 K/mm3 (0.0-0.7); EOS % 1.6 % (0.0-4.0); GRAN # 6.9 K/mm3 (1.4-6.5); GRAN % 72.9 % (42.2-75.2); HEMATOCRIT 24.5 % (42.0-52.0); HEMOGLOBIN 7.5 g/dl (13.5-18.0); LYMPH # 1.8 K/mm3 (1.2-3.4); MEAN CELL VOLUME 91 fl (80.0-100.0); MEAN CORPUSCULAR HEMOGLOBIN 28 pg (27-31); MEAN CORPUSCULAR HGB CONC 31 g/dl (33.0-37.0); MEAN PLATELET VOLUME 9.7 fl (7.4-10.4); MONO # 0.5 K/mm3 (0.1-0.6); MONO % 5.7 % (1.7-9.3); PLATELET COUNT 313 K/mm3 (130-400); RED BLOOD COUNT 2.69 M/mm3 (4.20-5.60); REDCELL DISTRIBUTION WIDTH-CV 17.4 % (11.5-14.5)
[2024-06-01 08:18] LABS: ALBUMIN 2.8 g/dL (3.5-5.0); CALCIUM 8.5 mg/dL (8.4-10.2); CREATININE, serum 7.27 mg/dL (0.72-1.25); TOTAL PROTEIN 8.4 g/dl (6.2-8.1)
[2024-06-01 08:24] LABS: POTASSIUM 5.8 mEq/L (3.5-4.5)
[2024-06-01 08:26] LABS: INR 1.8 (0.8-3.0); PROTHROMBIN TIME 19.5 SECONDS (9.7-12.8)
[2024-06-01 09:04] LABS: BILIRUBIN,TOTAL 0.5 mg/dL (0.2-1.2)
[2024-06-01] MEDS ORDERED: oxyCODONE 5 MG TAB PO PRN ×2 (11:30→14:30)
[2024-06-01] MEDS ORDERED: Morphine 4 MG/ML VIAL IV PRN ×2 (11:30→14:30)
[2024-06-01] MEDS ORDERED: Acetaminophen 500 MG TAB PO SCH ×2 (11:30→14:30)
--- NOTE | 2024-06-01 11:35 | NUR ---
PATIENT ARRIVED TO SURGICAL FLOOR AT APPROX 1115. ALERT AND ORIENTED. PATIENT TRANSFERRED SELF TO BED FROM WHEELCHAIR. INTAKE ASSESSMENT AND MED REC COMPLETE. UNABLE TO PERFORM PHYSICAL ASSESSMENT PATIENT IS GOING TO SURGERY NOW. WILL COMPLETE WHEN PATIENT GETS BACK.
--- NOTE | 2024-06-01 11:59 | NUR ---
PATIENT DOWN TO SURGERY AT APPROX 1156. ALERT AND ORIENTED.
--- NOTE | 2024-06-01 12:57 | NUR ---
D: Associate Web Developer stopped by room on rounds. A: Pt was resting and content while waiting for procedure. Pt appreciated the visit P: Associate Web Developer informed pt that if he needed anything from the notching press operator area to let his nurse know. Associate Web Developer will follow up as needed.
[2024-06-01] MEDS ORDERED: fentaNYL 50 MCG/ML 2 ML VIAL ONE (13:33)
[2024-06-01] MEDS ORDERED: Rocuronium 50 MG/5 ML Multi-Dose VIAL ONE (13:36)
[2024-06-01] MEDS ORDERED: Naloxone 0.4 MG/ML VIAL IV PRN (14:30)
[2024-06-01] MEDS ORDERED: D5 1/2 NS 1,000 ML IV SCH (14:30)
[2024-06-01] MEDS ORDERED: Dextrose 50% Water 25 GM/50 ML SYRINGE IV PRN (17:00)
[2024-06-01] MEDS ORDERED: Insulin Lispro (HumaLOG) SQ SCH (17:00)
[2024-06-01] MEDS ORDERED: Ferrous Sulfate 325 MG TAB PO SCH (17:00)
[2024-06-01] MEDS ORDERED: Dextrose (Glucose) 15 GM (4 x 3.75 GM) Chewable TABLET PACK PO PRN (17:00)
[2024-06-01] MEDS ORDERED: Glucagon 1 MG VIAL IM PRN (17:00)
--- NOTE | 2024-06-01 17:56 | NUR ---
PATIENT HAS CHRONIC UNSTAGEABLE WOUNDS TO BLE. RIGHT PLANTER UNSTAGEABLE RIGHT SIDE OF PLANTER UNSTAGABLE RIGHT PLANTER SIDE OF LEFT GREAT TOE LEFT PLANTER SIDE OF OUTER FOOT DORSAL SIDE OF LEFT GREAT TOE HEELS BILAT UNSTAGEABLE THIS NURSE REAPPLIED DRSG WITH 4X4S AND KERLIX. PICTURES TAKEN AND EMAILED.
--- NOTE | 2024-06-01 19:12 | NUR ---
report received from darline brooks. pt resting in bed. pt denies pain. call light in reach. all needs met at this time.
--- NOTE | 2024-06-01 20:16 | NUR ---
shift assessment complete, see documentation. pt reporting 10/10 left hand pain reported, prn oxycodone administered per orders. pt noted to have multiple chronic unstageable wounds noted to both feet and heels, drsg applied and CDI. call light in reach. all needs met at this time.
[2024-06-01] MEDS ORDERED: Atorvastatin 40 MG TAB PO SCH (21:00)
[2024-06-01] MEDS ORDERED: Apixaban 2.5 MG TABLET PO SCH (21:00)
--- NOTE | 2024-06-01 23:13 | NUR ---
pt reporting 5/10 left hand pain. prn morphine administered per orders. pt reporting left index finger is darker than earlier in the day. index finger noted to be slightly darker but still having perfusion. updated DIONISIO White, who stated to update Dr Bateman in AM and monitor through the night. left hand drsg reapplied. pt tolerated well.
--- NOTE | 2024-06-01 23:39 | NUR ---
Current INT will not flush. New 22g placed to right forearm x2 attempts by this nurse. Flushes well with no s/s of infiltration. Report given to ELEAZAR Bose primary nurse.
[2024-06-02] VITALS (12 sets, daily range): BP systolic 109–143; BP diastolic 74–89; PULSE 66–87; TEMP 97.6–98
[2024-06-02] MEDS ORDERED: ceFAZolin 2 G in Water For Injection,Sterile 20 ML IV SCH (01:00)
--- NOTE | 2024-06-02 03:39 | NUR ---
pt reporting 7/10 left hand pain, prn oxycodone administered per orders. left hand noted to be bleeding. drsg reinforced.
--- NOTE | 2024-06-02 06:00 | NUR ---
pt reporting 9/10 left hand pain, prn morphine administered per orders.
[2024-06-02 06:09] LABS: BASO % 0.4 % (0.0-2.0); EOS # 0.1 K/mm3 (0.0-0.7); EOS % 1.7 % (0.0-4.0); GRAN # 5.3 K/mm3 (1.4-6.5); GRAN % 76.2 % (42.2-75.2); LYMPH # 1.1 K/mm3 (1.2-3.4); LYMPH % 15.1 % (20.0-51.0); MEAN CELL VOLUME 88 fl (80.0-100.0); MEAN CORPUSCULAR HGB CONC 32 g/dl (33.0-37.0); MEAN PLATELET VOLUME 9.7 fl (7.4-10.4); MONO # 0.4 K/mm3 (0.1-0.6); MONO % 6.3 % (1.7-9.3); PLATELET COUNT 326 K/mm3 (130-400); RED BLOOD COUNT 2.62 M/mm3 (4.20-5.60)
[2024-06-02 06:16] LABS: HEMOGLOBIN 7.3 g/dl (13.5-18.0); MEAN CORPUSCULAR HEMOGLOBIN 28 pg (27-31)
[2024-06-02 06:23] LABS: CALCIUM 8.3 mg/dL (8.4-10.2); CREATININE, serum 8.05 mg/dL (0.72-1.25)
[2024-06-02 06:32] LABS: POTASSIUM 6.6 mEq/L (3.5-4.5)
[2024-06-02] MEDS ORDERED: NS 1,000 ML IV SCH (07:30)
[2024-06-02] MEDS ORDERED: Heparin 1,000 UNITS/ML 10 ML Multi-Dose VIAL IV SCH ×2 (07:30→18:00)
[2024-06-02] MEDS ORDERED: Heparin 5,000 UNITS/ML 1 ML VIAL ICA SCH (07:30)
--- NOTE | 2024-06-02 08:00 | NUR ---
Patient alert and oriented x4. VSS. Normal heart sounds 1&2. Lung sounds clear in all quinn. Audible sounds in all quadrants of abdomen. Radial pulses readily palpable. Weak pulses in posterior tibial. No redness, pain, or swelling in BLE. Dressing to left hand dry and intact. Dressings to BLE due to wounds. Patient states his pain is well controlled and rated 0/10. Patient transported to dialysis in his bed. Currently off the floor. No further needs.
[2024-06-02] MEDS ORDERED: Furosemide 80 MG TAB PO SCH (09:00)
[2024-06-02] MEDS ORDERED: Amiodarone 200 MG TAB PO SCH (09:00)
[2024-06-02] MEDS ORDERED: Clopidogrel 75 MG TAB PO SCH (09:00)
--- NOTE | 2024-06-02 11:38 | NUR ---
Dialysis note Pt arrived via Bed. Uf Goal was set for 2.0 and 2.0 removed. pt tolerated tx well and dcd back to room via bed.
--- NOTE | 2024-06-02 13:00 | NUR ---
PATIENT LUE DSG OOZING THROUGH ACEWRAP. CHANGED DSG AND APPLIED 4X4'S, ABD, KERLIX & ACEWRAP. PATIENT ALSO REQUESTING SOMETHING FOR PAIN. RN GAVE PRN ROXICODONE, SEE MAR. PATIENT SITTING AT SIDE OF BED WITH NO OTHER NEEDS & CALL LIGHT IN REACH.
--- NOTE | 2024-06-02 15:54 | NUR ---
family worker met with patient to discuss discharge planning. Juanita lives in [place] with his mother, Nikki and his brother. PCP is Dr. Thakkar, pharmacy [facility]. DPOA-HC is his mother. Insurance is Medicare A and B and [employer] A[employer]. No issues affording medications at this time. DME is wheelchair, walker and shower chair. Patient reports [facility] is working on getting his wheelchair ramp installed through [employer]. Patient stated he thought they said it would be installed this month. Patient reports he has [facility] to assist him with obtaining briefs and bed chucks and [employer] for caregiving and PT/OT. Juanita reports he plans to return home tomorrow after dialysis in the morning. Patient requested social security assessor contact Latoya at [facility] to see where they were at with the wheelchair ramp. PROMISE explained she would. PROMISE reviewed patient's orders and contacted Dr. Jenkins to request PT and OT. PROMISE secure emailed updates to [employer] [facility]. PROMISE contacted Latoya from [facility] whom expressed she spoke with patient last month. Latoya asked if patient would be able to get rehab before returning home. PROMISE explained she would see what PT states but given his surgery and that when she spoke with him earlier he was wanting to go home, he likely would return home tomorrow. Latoya understood and explained she would look into when [employer] could work on getting the ramp installed. PROMISE contacted patient's mother, Nikki, P# [phone], whom expressed she would be able to pick patient up tomorrow at discharge. Nikki asked social security assessor to call about 15 minutes before he is ready to go and she would come pick him up and meet them in the ER entrance. Discharge plan: Home with [facility]
[2024-06-02] MEDS ORDERED: Albumin (Human) 100 ML IV SCH (18:00)
[2024-06-02] MEDS ORDERED: Heparin 1,000 UNITS/ML 10 ML Multi-Dose VIAL ICA SCH (18:00)
[2024-06-03] VITALS (8 sets, daily range): BP systolic 122–131; BP diastolic 68–76; PULSE 62–71; TEMP 97.4–98.4
--- NOTE | 2024-06-03 01:35 | NUR ---
NURSING SHIFT ASSESSMENT COMPLETED. THE PATIENT WAS ALERT AND ORIENTED. THE DRESSING TO THE PATIENTS LEFT HAND WAS C/D/I. THE PATIENT REPORTED HIS PAIN MINIMAL. NO INTERVENTION NEEDED AT THIS TIME PER THE PATIENT. THE PLAN OF CARE AND EVENING MEDICATIONS REVIEWED. CALL LIGHT AND PERSONAL BELONGINGS WITHIN REACH.
[2024-06-03 06:24] LABS: BASO % 0.4 % (0.0-2.0); EOS # 0.2 K/mm3 (0.0-0.7); EOS % 2.3 % (0.0-4.0); GRAN % 72.9 % (42.2-75.2); LYMPH # 1.2 K/mm3 (1.2-3.4); LYMPH % 16.9 % (20.0-51.0); MEAN CELL VOLUME 86 fl (80.0-100.0); MEAN CORPUSCULAR HGB CONC 32 g/dl (33.0-37.0); MEAN PLATELET VOLUME 9.8 fl (7.4-10.4); MONO # 0.5 K/mm3 (0.1-0.6); MONO % 7.1 % (1.7-9.3); PLATELET COUNT 300 K/mm3 (130-400); RED BLOOD COUNT 2.72 M/mm3 (4.20-5.60)
[2024-06-03 06:36] LABS: HEMATOCRIT 23.4 % (42.0-52.0); HEMOGLOBIN 7.5 g/dl (13.5-18.0); MEAN CORPUSCULAR HEMOGLOBIN 28 pg (27-31)
[2024-06-03 06:44] LABS: CALCIUM 8.2 mg/dL (8.4-10.2); CREATININE, serum 5.63 mg/dL (0.72-1.25); POTASSIUM 4.9 mEq/L (3.5-4.5)
--- NOTE | 2024-06-03 09:30 | NUR ---
PATIENT AT DIALYSIS. TRANSFERRED BY BED.
--- NOTE | 2024-06-03 10:00 | NUR ---
PATIENT IS A&O X4. VSS. C/O PAIN THIS AM AND RECEIVED PRN PAIN MEDICATIONS. TAKING ASPRIRIN AND ELIQUIS FOR VTE PROPHYLAXIS. LEFT HAND DRESSING IS CLEAN, DRY, AND INTACT. PATIENT IS WHEELCHAIR BOUND. ASSIST X1 FOR CARES AND TRANSFERS. IV IS PATENT AND INTACT IN LFA. DIALYSIS CATHETER IS PATENT AND INTACT. PATIENT IS CURRENTLY RECEIVING DIALYSIS. PLAN IS TO DC TODAY.
--- NOTE | 2024-06-03 12:48 | NUR ---
Dialysis Note Pt arrived via bed. Uf goal set for 1.5kg and 1.5kg removed. Pt dcd without complaints back to room via bed.
--- NOTE | 2024-06-03 13:16 | NUR ---
PERIPHERAL IV REMOVED IN RFA. COVERED SITE WITH GAUZE AND COBAN. WENT OVER DISCHARGE INSTRUCTIONS WITH PATIENT. PATIENT WAS ATTENTIVE AND VERBALIZED UNDERSTANDING. ESCORTED PATIENT OUT TO PERSONAL VEHICLE TO BE DISCHARGED HOME.
--- NOTE | 2024-06-03 15:40 | NUR ---
car worker helper was notified that patient will medically ready for discharge today. PROMISE reviewed the PT and OT evaluations both recommended home with home health and family assistance. PROMISE secure emailed updates and discharge orders to [facility] . PROMISE left a detailed voicemail for [place] that patient will be discharging home todayy. Discharge plan: Home with [facility]
== END 2024-06-03 13:10 | disposition home health service (06) | DRG 255 ==
LOC: COL.ER 06:25 → SURG 09:10
PROVIDERS: Orthopaedic Surgery; Personal Emergency Response Attendant; ADMIT Internal Medicine
PROC: 0X6T0Z1 Detachment at Left Ring Finger, High, Open Approach (ICD-10-PCS; 2024-06-01)
PROC: 0X6R0Z1 Detachment at Left Middle Finger, High, Open Approach (ICD-10-PCS; principal; 2024-06-01 13:00)
DX: I99.8 Other disorder of circulatory system (principal); N18.6 End stage renal disease; D63.1 Anemia in chronic kidney disease; Z99.2 Dependence on renal dialysis; E87.5 Hyperkalemia; I51.7 Cardiomegaly; I34.0 Nonrheumatic mitral (valve) insufficiency; I48.0 Paroxysmal atrial fibrillation; E11.8 Type 2 diabetes mellitus with unspecified complications; Z79.4 Long term (current) use of insulin; Z86.73 Personal history of transient ischemic attack (TIA), and cerebral infarction without residual deficits
CPT/HCPCS: J0665; J0690; J1580; J1644; J2270; J2405; J2704; J3010; J7030; Q3014

== ENCOUNTER 2024-06-30 07:07 | Inpatient (IN) | payer MEDICARE, MEDICAID ==
[~2024-06-30] VITALS: Ht 190.5 cm; Wt 81.6 kg
[2024-06-30] VITALS (10 sets, daily range): BP systolic 107–130; BP diastolic 71–79; PULSE 54–67; TEMP 97.5–98.5
[2024-06-30] MEDS ORDERED: Loperamide 2 MG CAP PO ONE (07:45)
[2024-06-30 08:04] LABS: BASO % 0.3 % (0.0-2.0); EOS % 0.3 % (0.0-4.0); GRAN # 6.5 K/mm3 (1.4-6.5); GRAN % 73.7 % (42.2-75.2); LYMPH # 1.7 K/mm3 (1.2-3.4); LYMPH % 19.3 % (20.0-51.0); MEAN CELL VOLUME 90 fl (80.0-100.0); MEAN CORPUSCULAR HGB CONC 31 g/dl (33.0-37.0); MEAN PLATELET VOLUME 9.3 fl (7.4-10.4); MONO # 0.6 K/mm3 (0.1-0.6); MONO % 6.2 % (1.7-9.3); PLATELET COUNT 207 K/mm3 (130-400); RED BLOOD COUNT 2.82 M/mm3 (4.20-5.60); REDCELL DISTRIBUTION WIDTH-CV 15.9 % (11.5-14.5)
[2024-06-30 08:05] LABS: HEMOGLOBIN 7.9 g/dl (13.5-18.0); MEAN CORPUSCULAR HEMOGLOBIN 28 pg (27-31)
[2024-06-30 08:06] LABS: HEMATOCRIT 25.3 % (42.0-52.0)
[2024-06-30 08:23] LABS: ALBUMIN 2.6 g/dL (3.5-5.0); BILIRUBIN,TOTAL 0.6 mg/dL (0.2-1.2); CALCIUM 8.1 mg/dL (8.4-10.2); CREATININE, serum 9.42 mg/dL (0.72-1.25); TOTAL PROTEIN 7.4 g/dl (6.2-8.1)
[2024-06-30 08:30] LABS: POTASSIUM 6.4 mEq/L (3.5-4.5)
[2024-06-30] MEDS ORDERED: Calcium Chloride 1,000 MG (13.6 mEq)/10 ML SYRINGE IV ONE (08:45)
[2024-06-30] MEDS ORDERED: Insulin Lispro (HumaLOG) IV ONE (08:45)
[2024-06-30] MEDS ORDERED: Dextrose 50% Water 25 GM/50 ML SYRINGE IV ONE (08:45)
[2024-06-30] MEDS ORDERED: Sodium Zirconium Cyclosilicate for Oral Susp 10 GM PACKET PO ONE (08:45)
[2024-06-30] MEDS ORDERED: Heparin 1,000 UNITS/ML 10 ML Multi-Dose VIAL ICA SCH (09:30)
[2024-06-30] MEDS ORDERED: Heparin 1,000 UNITS/ML 10 ML Multi-Dose VIAL IV SCH (09:30)
[2024-06-30] MEDS ORDERED: RENVELA800 MG PO (10:02)
[2024-06-30] MEDS ORDERED: NEURONTIN300 MG/CAP PO (10:02)
[2024-06-30] MEDS ORDERED: PLAVIX 75MG TAB75 MG PO (10:03)
--- NOTE | 2024-06-30 11:00 | NUR ---
PATIENT ARRIVED TO MEDICAL FLOOR AT APPROX 1000. PATIENT IS ALERT AND ORIENTED. DENIES CHEST PAIN, SOA, PAIN, OR DISCOMFORT. INTAKE ASSESSMENT COMPLETE. PATIENT WAS UNABLE TO ASSIST WITH MED REC. EXTENSIVE SKIN CONCERNS. SEE SEPARATE NOTE. PATIENT HAS HD CATH TO RIGHT CHEST. NO DRSG, CDI. PATIENT REPORTS HE HAS NOT BEEN ABLE TO GET OUT OF BED IN A FEW DAYS D/T WEAKNESS. CALL LIGHT WITHIN REACH.
--- NOTE | 2024-06-30 12:00 | NUR ---
PATIENT'S SKIN ISSUES ARE FOLLOWS: LEFT FIRST METACARPAL OPEN BLISTER. PURPLISH IN COLOR LEFT SECOND/THIRD METACARPAL OPEN BLISTER LEFT FOURTH/FIFTH METACARPAL AMPUTATION. COVERED WITH ABD AND TANIA. RIGHT FIFTH METATARSAL ULCER, RED SCAB RIGHT FIFTH TOENAIL FELL OFF WITH TAKING OFF SOCK RIGHT ANT ANKLE (2) UNSTAGEABLE RIGHT GREAT TOE UNSTAGEABLE RIGHT LATERAL FOOT UNSTAGEABLE RIGHT HEEL UNSTAGEABLE LEFT GREAT TOE UNSTAGEABLE LEFT LATERAL FOOT UNSTAGEABLE LEFT HEEL UNSTAGEABLE
--- NOTE | 2024-06-30 12:15 | NUR ---
PATIENT DOWN TO DIALYSIS AT 1150. ALERT AND ORIENTED. DENIES PAIN OR DISCOMFORT.
[2024-06-30] MEDS ORDERED: Sevelamer Carbonate 800 MG TAB PO SCH ×2 (14:00→17:00)
[2024-06-30] MEDS ORDERED: Gabapentin 300 MG CAP PO SCH (14:00)
[2024-06-30] MEDS ORDERED: Clopidogrel 75 MG TAB PO SCH (14:00)
[2024-06-30] MEDS ORDERED: Amiodarone 200 MG TAB PO SCH (14:00)
--- NOTE | 2024-06-30 15:35 | NUR ---
Dialysis Note Pt arrived to dialysis via bed. Uf goal set for 3.5 and increased to 3.8 kg. Pt tolerated tx well and dcd back to room via bed without complaints.
--- NOTE | 2024-06-30 15:38 | NUR ---
final assembly worker spoke with Jay at [facility] who has seen pt and he is still active with them. Discharge Plan: tbd by medical progress
[2024-06-30] MEDS ORDERED: Ferrous Sulfate 325 MG TAB PO SCH (17:00)
--- NOTE | 2024-06-30 17:04 | NUR ---
THIS RN DOCUMENTED ALL WOUNDS PER POLICY WITH PATIENT'S PERMISSION. DRESSINGS CHANGED, CDI. PATIENT TOLERATED WELL
[2024-06-30] MEDS ORDERED: Atorvastatin 40 MG TAB PO SCH (21:00)
--- NOTE | 2024-06-30 23:11 | NUR ---
patient lying in bed, alert and oriented x4. denies chest pain and shortness of breath. IV in RH is patent, site is CDI. Right chest HD catheter, right ring finger amputation, left middle and ring finger amputated site with guaze and amy wrap dressing, left pointer finger with open/scabbing blister open to air, bilateral feet and toes wrapped with gauze and krilex for multipls small open wounds, all CDI. pt able to reposition/turn self, refused offered repossition up in bed. pt has no further needs, questions or concerns at this time. fall precautions in place, call light within reach. will continue to monitor.
[2024-07-01 03:47] VITALS: BP 124/72; PULSE 73; TEMP 99.9
[2024-07-01 03:58] VITALS: BP_SYST 124
[2024-07-01 06:30] LABS: BASO % 0.2 % (0.0-2.0); EOS # 0.4 K/mm3 (0.0-0.7); EOS % 4.1 % (0.0-4.0); GRAN # 7.5 K/mm3 (1.4-6.5); GRAN % 82.6 % (42.2-75.2); LYMPH # 0.7 K/mm3 (1.2-3.4); MEAN CELL VOLUME 87 fl (80.0-100.0); MEAN CORPUSCULAR HGB CONC 32 g/dl (33.0-37.0); MEAN PLATELET VOLUME 9.7 fl (7.4-10.4); MONO # 0.4 K/mm3 (0.1-0.6); MONO % 4.8 % (1.7-9.3); PLATELET COUNT 232 K/mm3 (130-400); REDCELL DISTRIBUTION WIDTH-CV 15.7 % (11.5-14.5)
[2024-07-01 06:31] LABS: HEMATOCRIT 30.6 % (42.0-52.0); HEMOGLOBIN 9.8 g/dl (13.5-18.0); MEAN CORPUSCULAR HEMOGLOBIN 28 pg (27-31)
[2024-07-01 06:32] LABS: ALBUMIN 2.4 g/dL (3.5-5.0); CALCIUM 8.8 mg/dL (8.4-10.2); CREATININE, serum 6.48 mg/dL (0.72-1.25); MAGNESIUM 2.1 mg/dL (1.6-2.6); PHOSPHOROUS 7.6 mg/dL (2.3-4.7)
[2024-07-01 07:08] VITALS: BP 120/70; PULSE 81; TEMP 98.8
--- NOTE | 2024-07-01 07:28 | NUR ---
Bedside report received from ELEAZAR Barnett. Pt resting in bed awake with no complaints. Call light within reach.
[2024-07-01] MEDS ORDERED: Heparin 1,000 UNITS/ML 10 ML Multi-Dose VIAL IV SCH (08:00)
[2024-07-01] MEDS ORDERED: Heparin 1,000 UNITS/ML 10 ML Multi-Dose VIAL ICA SCH (08:00)
[2024-07-01] MEDS ORDERED: NS 1,000 ML IV SCH (08:00)
[2024-07-01 08:30] VITALS: BP_SYST 120
[2024-07-01] MEDS ORDERED: Furosemide 80 MG TAB PO SCH (09:00)
[2024-07-01 11:06] VITALS: BP 122/74; PULSE 67
--- NOTE | 2024-07-01 11:09 | NUR ---
direct service worker notes pt has many re-admissions and missed diaylsis due to weakness. SW Director suggested goals of care discussion be broached. PROMISE spoke with RN GERRI Veloz and Dr. Jenkins who were agreeable to this after diaylsis. SW met with pt in diaylsis room to verify intake information. He states he lives with his mother, Nikki in [place] and sees Dr. Thakkar for PCP needs. He obtains medications from [facility] with no issues. He confirmed his insurance as Medicare A and B and Medicaid. He reports to usually be independent with ADLS and uses a wheelchair for DME. He states he came in for weakness and could not move. He confirms his mother is DPOA-HC and SW verified this on file. He confirmed to have [facility] and that [address] did finish his wheelchair ramp he is happy about. He informs SW that he requested a bath remodel from them. Pt reports he intends to discharge home with HH and his mother will pick him up. PROMISE discussed PT/OT needing to assess him to ensure his needs are met. Pt verbalized understanding and did inform SW he cannot afford a fpc, if reccomended. PROMISE was made aware per ELEAZAR Vickers pt intended to discharge from the diaylsis room. PROMISE advised PT/OT need to see pt and goals of care discussion will be had prior. PROMISE faxed updates to [facility]. Discharge Plan: likely home with HH
--- NOTE | 2024-07-01 11:36 | NUR ---
Dialysis Note Pt arrived to dialysis via bed. Uf removed 3 kg. Pt tolerated tx well. Pt dcd back to room without complaints via bed
--- NOTE | 2024-07-01 12:08 | NUR ---
Pt back to room from dialysis by bed.
--- NOTE | 2024-07-01 12:13 | NUR ---
Pt resting in bed awake. Shift assessment completed. VSS. Pt is A&O x4. Quiana NICHOLE completed dressing change this AM. Dressing to Bilateral hands patent with no swelling, redness, or drainage. Dressing to bilateral feet patent with no swelling, redness, or drainage. Heel boots in place per DIONISIO Araya. Pt denies pain at this time rating 0/10. INT to Rt hand CDI. Pt has no request at this time. Call light within reach and fall precautions in place.
[2024-07-01 12:18] VITALS: BP_SYST 122
--- NOTE | 2024-07-01 15:02 | NUR ---
TORB to discontinue telemetry and vital signs at this time per Dr. Jenkins. Vital signs PRN.
--- NOTE | 2024-07-01 15:06 | NUR ---
Nestor Oh and myself met with Epifanio, his Mother Nikki regarding Goals of Care. Discussed fragility of ESRD, pt expressed his fatigue and his wish to be done with Dialysis. He is very open to going to the [facility], states he has been ready for Hospice but felt like he was staying alive for his mother and other family members. Reinterated that we would support him in his decision whether aggressive or hospice. His mother Nikki stated she will support him in his decision to go Hospice. Nestor is making arrangements. Dr. Jenkins informed of conversation by Mary Anne Turcios.
--- NOTE | 2024-07-01 15:10 | NUR ---
SW was later informed by OT Annika that pt is not safe to go home. SW reviewed PT/OT notes stating 2 person assist, could not transfer, and could not tolerate sitting for a few minutes. SW spoke with pt and provided Medicare.gov list for prison. Pt voices that he wants to just go home. SW stated that he was a heavy assist and could not transfer and wonders if his mother could take care of him. Pt states he is not comfortable with a prison and this is not what he wants to do and feel around strangers all the time. SW again advised he does not apear safe to return home and is unsure if his mother can care for him. Pt went on to state he would be interested in hospice as home. SW advised that this still would promote an unsafe discharge plan as his mother would be responsible for most care when the hospice agency could not come in. SW advised she will gather other supporting staff members to discuss options for him. PROMISE spoke with Dr. Lehman via phone to obtain his thoughts on pt being appropriate for hospice. He reports pt has "been talking about this when he is frustrated, but when he is well he is happy." He states pt has [facility] with [facility] as well. Dr. Lehman believes pt could be wishy washy with hospice and might try to discontinue it. PROMISE attempted to reach Dr. Jenkins x3 with no success. PROMISE called ADA Trimble to assist with discussing goals of care with social services and GERRI Veloz. Message was passed to Dr. Jenkins. PROMISE spoke with Director Mary Anne Turcios who suggests having pt's mother come in person to discuss goals. PROMISE met with pt again who calls his mother on the phone. She reports she cannot take care of pt at home. PROMISE inquired about this change and he reports he is now fine with a prison. PROMISE asked Nikki mother to come in person to discuss with other team members too. She will arrive in the next 15 minutes. PROMISE informed ELEAZAR Vickers, Director Mary Anne, and GERRI Veloz of the above. PROMISE, GERRI Veloz, and Director North all met with pt and his mother in the room. Nikki mom reports pt has a 5 gallon bucket by his bed that he uses for waste and she empties it. She states Saturday was difficult as it was all over the bed and "overwhelming." She confirms she cannot take care of him. Director Mary Anne discussed nursing homes and he voices wanting to stay in [facility] due to his family being there. Director advised they would send referrals to them, but this could be expanded if no availability or diaylsis barriers. GERRI Roselia discussed hospice as an option. Pt states he is "tired and lived a long life." He went on to state he has no had a good quality of life on this path and "feels in hell." Pt reports he understands he cannot go home and mother acknowledges this. Director discussed [facility] in [place]. Mother reports her sister has been there, so she is familiar. They were open to [facility] staff coming to discuss details. PROMISE emailed referrals to [facility], [facility], and [facility]. PROMISE spoke with Monica at [facility] who later states their social services cannot come until tomorrow morning. PROMISE spoke with pt who states 9am works tomorrow for them to come by with mother present. Pt confirmed Nikki's number as [phone]. SW confirmed 9am for tomorrow with Monica at [facility]. Director North updated Dr. Jenkins and Dr. Lehman. PROMISE updated ELEAZAR Vickers. Discharge Plan: hospice placement
--- NOTE | 2024-07-01 16:12 | NUR ---
spice room worker attended palliative care meeting with patient and his mother. Mother was able to verbalize that she cannot care for patient at home any longer. Patient verbalized that he was ready to stop dialysis and knew that his would happen and he was ready for this. Patient's mother verbalized acceptance of patient's wishes and both were agreeable to meet with the [facility] house this date. Worker contacted Dr Jenkins and Dr Costello and advised of the above information.
--- NOTE | 2024-07-01 21:28 | NUR ---
patietn lying in bed, alert and oriented x4. denies chest pain and shortness of breath. IV in Rh is patent, site is CDI. dressing to Left hand, and bilateral feet are CDI, right HD cath CDI. left pointer finger blister is close and skin intact. pt has no further needs, questions or concers at this time. fall precautions in place, pt able to reposition self. call light within reach. will continue to monitor.
[2024-07-02] MEDS ORDERED: Loperamide 2 MG CAP PO PRN (02:15)
--- NOTE | 2024-07-02 07:03 | NUR ---
Bedside report received from ELEAZAR Barnett. Pt awake in bed with no complaints. Call light within reach.
[2024-07-02] MEDS ORDERED: Morphine Oral Concentrate 20 MG/ML UD SL PRN (08:30)
[2024-07-02] MEDS ORDERED: Scopolamine 1 MG Delivered 3-Day PATCH TD SCH (08:30)
[2024-07-02] MEDS ORDERED: LORazepam 2 MG/ML 1 ML VIAL IV PRN (08:30)
--- NOTE | 2024-07-02 10:44 | NUR ---
criminal justice social worker attended clinical rounding and was informed pt needs to have the diaylsis catheter removed per Dr. Lehman. PROMISE spoke with [facility] who confirms they need it removed and would not use it for med adminstration. PROMISE informed and ADA of this. Surgeon is consulted and can remove late this evening. PROMISE spoke with Monica at [facility] who can accept tomorrow morning. 10am transport time was agreed upon. PROMISE informed Clerk Chao and ELEAZAR Vickers of this plan. PROMISE spoke with [facility] who could transport pt at 10am tomorrow. PROMISE emailed updates to [facility]. Discharge Plan: 10am EMS to [facility] tomorrow
--- NOTE | 2024-07-02 11:05 | NUR ---
Pt awake in bed resting with no complaints. Shift assessment completed. Pt denies pain at this time rating 0/10. DIONISIO Araya instructed this nurse to change wound dressings every other day and PRN if drainage noted. Bilateral heel dressings intact with no drainage noted. Pt refused heel boots at this time. Lt hand dressing intact with no drainage noted. INT to Rt hand patent with no swelling, redness, or drainage. NPO status maintained. ADA Trimble informed that pt did consume breakfast this AM. Pt has no request at this time. Call light within reach and fall precautions in place.
--- NOTE | 2024-07-02 14:34 | NUR ---
electronics worker was informed pt is getting his diaylsis catheter removed earlier than expected and RN was wondering if pt can discharge after. PROMISE spoke with Monica at [facility] who reports pt wanted Dr. Lehman to follow. PROMISE called Dr. Thakkar's office and PROMISE Christopher reports PCP could follow. PROMISE informed [facility] of this and they report [facility] will follow and agreed. [facility] cannot accept pt today due to it being later in the day. PROMISE informed ELEAZAR Vickers that pt will still discharge tomorrow. Discharge Plan: 10am EMS transport to [facility] tomorrow
[2024-07-02] MEDS ORDERED: Lidocaine 2% w EPI (1:100,000) 20 ML Multi-Dose VIAL SQ ONE (14:40)
[2024-07-02 15:57] VITALS: BP 113/70; PULSE 74; TEMP 97.8
--- NOTE | 2024-07-02 22:50 | NUR ---
ROUNDED ON PATIENT AND PER PATIENT REQUEST, A DO NOT DISTURB NOTE PLACED ON DOOR. GILBERTO WISHES TO GET SOME SLEEP. HE IS ON COMFORT CARES AND ANTICIPATING DISCHARGE TO [facility]. LUNG SOUNDS CLEAR, HEART RATE FIORELLA @58 BPM AND BREATHING IS UNLABORED. CALL LIGHT WITHIN REACH.
--- NOTE | 2024-07-03 04:45 | NUR ---
ROUNDED ON PATIENT AND PATIENT CONTINUES TO INSIST ON BEING UNDISTURB POLITELY STATING, "YEAH KEEP THE SIGN UP. I'D LIKE TO SLEEP A LITTLE BIT LONGER." ASKED PATIENT IF HE WAS IN ANY PAIN OR HAD ANY NEEDS, PATIENT DENIED ANY NEEDS.
--- NOTE | 2024-07-03 05:40 | NUR ---
PATIENT UTILIZED CALL LIGHT, REQUESTED PEPSI AND ICE CHIPS, ASKED PATIENT IF IT WAS NOW OKAY TO REMOVE THE DO NOT DISTURB SIGN AND PATIENT STATED, "YEAH, IT'S ALMOST TIME TO ORDER BREAKFAST." PATIENT IS PLEASANT AND CONTINUES TO DENY PAIN.
--- NOTE | 2024-07-03 08:00 | NUR ---
Patient laying in bed, A&Ox4. Denies pain and discomfort. Waiting to go to [facility]. Comfort care orders in place. No further needs expressed. Call light within reach. Bed alarm on
[2024-07-03] MEDS ORDERED: SYSTANE 0.4%-0.1 SOL OU (08:16)
[2024-07-03] MEDS ORDERED: TRANSDERM-0.5 MG/21 TD (08:16)
[2024-07-03] MEDS ORDERED: DULCOLAX S10 MG/SUPP RC (08:16)
[2024-07-03] MEDS ORDERED: ROXANOL 20MG20 MG/ML SL (08:16)
[2024-07-03] MEDS ORDERED: ATIVAN 1MG T1 MG/TAB PO (08:16)
--- NOTE | 2024-07-03 09:24 | NUR ---
floorworker distributor met with pt to confirm discharge today. Pt was agreeable and provided verbal consent for EMS to transport at 10am. SW emailed discharge orders to Monica at [facility]. PROMISE provided nurse report number to RN Kelly and EMS forms. Discharge Plan: 10am [facility]
--- NOTE | 2024-07-03 09:32 | NUR ---
Report called to [facility].
--- NOTE | 2024-07-03 10:00 | NUR ---
EMS to transport the patient to [facility]. Report called. Patients family to come picker tender helper wheelchair and transfer board. No further needs expressed.
--- NOTE | 2024-07-03 10:41 | NUR ---
SW was informed a blue wheelchair and slide board is in pt's room. PROMISE called pt's mother, Nikki and informed her of this. She states she thoughts pt's wheelchair is at home. She will check and was informed it is here for her to berry picker machine operator. Staff labeled pt's wheelchair.
== END 2024-07-03 09:55 | disposition hospice, inpatient (51) | DRG 640 ==
LOC: COL.ER 07:07 → MEDICAL 08:57 → EDBEDREQ 09:25 → MEDICAL 10:01
PROVIDERS: Personal Emergency Response Attendant; ADMIT Internal Medicine
PROC: 0JPT3XZ Removal of Tunneled Vascular Access Device from Trunk Subcutaneous Tissue and Fascia, Percutaneous Approach (ICD-10-PCS; principal; 2024-06-30)
PROC: 5A1D70Z Performance of Urinary Filtration, Intermittent, Less than 6 Hours Per Day (ICD-10-PCS; 2024-06-30)
PROC: 05PYX3Z Removal of Infusion Device from Upper Vein, External Approach (ICD-10-PCS; 2024-06-30)
DX: E87.5 Hyperkalemia (principal); N18.6 End stage renal disease; I42.0 Dilated cardiomyopathy; E87.70 Fluid overload, unspecified; Z66 Do not resuscitate; Z51.5 Encounter for palliative care; K52.9 Noninfective gastroenteritis and colitis, unspecified; I25.10 Atherosclerotic heart disease of native coronary artery without angina pectoris; E83.59 Other disorders of calcium metabolism; D63.1 Anemia in chronic kidney disease; I08.1 Rheumatic disorders of both mitral and tricuspid valves; E87.20 Acidosis, unspecified; H26.9 Unspecified cataract; I48.0 Paroxysmal atrial fibrillation; L89.620 Pressure ulcer of left heel, unstageable; L89.610 Pressure ulcer of right heel, unstageable; I44.4 Left anterior fascicular block; Z99.2 Dependence on renal dialysis; Z87.891 Personal history of nicotine dependence; Z89.021 Acquired absence of right finger(s); Z79.82 Long term (current) use of aspirin; Z79.899 Other long term (current) drug therapy; Z86.73 Personal history of transient ischemic attack (TIA), and cerebral infarction without residual deficits; Z79.02 Long term (current) use of antithrombotics/antiplatelets; Z89.022 Acquired absence of left finger(s)
CPT/HCPCS: A9270; J1644; J1815; J7030; Q3014